=== PATIENT | male | born 1940 | race Caucasian/White ===

== ENCOUNTER 2025-04-01 13:29 | Emergency (ER) | payer MEDICARE ==
[2025-04-01] MEDS ORDERED: Sodium Chloride 0.9% 10 ML Syringe FLUSH PRN (14:13)
[2025-04-01] MEDS: Furosemide 40 MG/4 ML VIAL IVPUSH ONE (14:20)
[2025-04-01 15:14] LABS: APPEARANCE,URINE CLEAR (CLEAR); GLUCOSE,URINE NEGATIVE (NEGATIVE); OCCULT BLOOD,URINE NEGATIVE (NEGATIVE)
[2025-04-01] MEDS: Furosemide 20 MG/2 ML VIAL IVPUSH ONE (16:06)
[2025-04-01 17:40] VITALS: BP 130/92; PULSE 100
== END 2025-04-01 17:50 | disposition home or self-care (01) ==
LOC: LB.ED 13:29
DX: I48.91 Unspecified atrial fibrillation (principal); I50.9 Heart failure, unspecified; Z79.82 Long term (current) use of aspirin; Z79.899 Other long term (current) drug therapy
CPT/HCPCS: 36415; 81001; 83880; 84443; 84484; 93005; 93010; 96374; 96376; 99284; 99285-25; A9270-GY; J1938

== ENCOUNTER 2025-04-15 13:29 | Inpatient (IN) | payer MEDICARE ==
[2025-04-15] MEDS ORDERED: Sodium Chloride 0.9% 10 ML Syringe FLUSH PRN (14:00)
[2025-04-15] MEDS: Furosemide 40 MG/4 ML VIAL IVPUSH ONE (14:02)
[2025-04-15 14:13] LABS: BASOPHILS ABSOLUTE AUTO 0.02 K/uL (0.02-0.10); BASOPHILS PERCENT AUTO 0.2 % (0.0-0.5); EOSINOPHILS ABSOLUTE AUTO 0.03 K/uL (0.04-0.40); EOSINOPHILS PERCENT AUTO 0.4 % (1.0-5.0); LYMPHOCYTES ABSOLUTE AUTO 0.52 K/uL (1.50-4.00); LYMPHOCYTES PERCENT AUTO 6.3 % (20.0-40.0); MEAN PLATELET VOLUME 11.2 fL (6.0-10.0); MONOCYTES ABSOLUTE AUTO 0.62 K/uL (0.20-0.80); MONOCYTES PERCENT AUTO 7.5 % (3.0-10.0); NEUTROPHILS ABSOLUTE AUTO 7.03 K/uL (2.00-7.50); NEUTROPHILS PERCENT AUTO 85.6 % (45.0-70.0); PLATELET COUNT,PLT 249 K/uL (150-400); RED BLOOD CELL COUNT 4.29 M/uL (4.50-6.50); RED CELL DISTRIBUTION WIDTH 13.8 % (11.0-16.0); WHITE BLOOD CELL COUNT,WBC 8.2 K/uL (4.0-11.0)
[2025-04-15 14:33] LABS: TROPONIN I HIGH SENSITIVITY 13.3 pg/ml (<=60.4)
[2025-04-15 14:39] LABS: A/G RATIO 0.8 (0.8-2.0); ALANINE AMINOTRANSFERASE,ALT 32.0 U/L (12-78); ASPARTATE AMNIOTRANSFERASE,AST 18.0 U/L (15-37); BILIRUBIN TOTAL 0.7 mg/dL (0.0-1.0); BLOOD UREA NITROGEN,BUN 33.0 mg/dL (8-26); CARBON DIOXIDE,CO2 31.4 mmol/L (21.0-32.0); CHLORIDE,CL 104.0 mmol/L (98-107); CREATININE 1.87 mg/dL (0.70-1.30); EST CRCL DRUG DOSING (CG) 27.98 mL/min; ESTIMATED GFR 35.0 mL/min (>60); GLUCOSE RANDOM 186.0 mg/dL (74-100); POTASSIUM,K 3.6 mmol/L (3.5-5.1); PROTEIN TOTAL,TP 6.5 g/dL (6.4-8.2); SODIUM,NA 142.0 mmol/L (136-145)
[2025-04-15] MEDS: Metoprolol Tartrate 5 MG/5 ML SDV IVPUSH ONE (18:27)
[2025-04-15 20:55] LABS: BASOPHILS ABSOLUTE AUTO 0.02 K/uL (0.02-0.10); BASOPHILS PERCENT AUTO 0.2 % (0.0-0.5); EOSINOPHILS ABSOLUTE AUTO 0.14 K/uL (0.04-0.40); EOSINOPHILS PERCENT AUTO 1.7 % (1.0-5.0); LYMPHOCYTES ABSOLUTE AUTO 0.79 K/uL (1.50-4.00); LYMPHOCYTES PERCENT AUTO 9.8 % (20.0-40.0); MEAN PLATELET VOLUME 10.7 fL (6.0-10.0); MONOCYTES ABSOLUTE AUTO 0.89 K/uL (0.20-0.80); MONOCYTES PERCENT AUTO 11.0 % (3.0-10.0); NEUTROPHILS ABSOLUTE AUTO 6.23 K/uL (2.00-7.50); NEUTROPHILS PERCENT AUTO 77.3 % (45.0-70.0); PLATELET COUNT,PLT 220 K/uL (150-400); RED BLOOD CELL COUNT 4.23 M/uL (4.50-6.50); RED CELL DISTRIBUTION WIDTH 13.7 % (11.0-16.0); WHITE BLOOD CELL COUNT,WBC 8.1 K/uL (4.0-11.0)
[2025-04-15 21:29] LABS: INR 1.4 (1.0-3.5); PTT,PARTIAL THROMBOPLSTIN TIME 30.5 SECONDS (24.4-33.2)
[2025-04-16] MEDS: Furosemide 40 MG/4 ML VIAL IVPUSH SCH (07:18)
[2025-04-16] MEDS: Potassium Chloride 20 MEQ Tab.ER PO SCH (07:19)
[2025-04-16 07:20] VITALS: BP 122/81; PULSE 120
[2025-04-16] MEDS ORDERED: Furosemide 40 MG/4 ML VIAL IVPUSH SCH (08:00)
[2025-04-16 10:07] LABS: BASOPHILS ABSOLUTE AUTO 0.02 K/uL (0.02-0.10); BASOPHILS PERCENT AUTO 0.3 % (0.0-0.5); EOSINOPHILS ABSOLUTE AUTO 0.16 K/uL (0.04-0.40); EOSINOPHILS PERCENT AUTO 2.1 % (1.0-5.0); LYMPHOCYTES ABSOLUTE AUTO 0.68 K/uL (1.50-4.00); LYMPHOCYTES PERCENT AUTO 8.9 % (20.0-40.0); MEAN PLATELET VOLUME 10.2 fL (6.0-10.0); MONOCYTES ABSOLUTE AUTO 0.72 K/uL (0.20-0.80); MONOCYTES PERCENT AUTO 9.4 % (3.0-10.0); NEUTROPHILS ABSOLUTE AUTO 6.07 K/uL (2.00-7.50); NEUTROPHILS PERCENT AUTO 79.3 % (45.0-70.0); PLATELET COUNT,PLT 220 K/uL (150-400); RED BLOOD CELL COUNT 4.49 M/uL (4.50-6.50); RED CELL DISTRIBUTION WIDTH 13.7 % (11.0-16.0); WHITE BLOOD CELL COUNT,WBC 7.7 K/uL (4.0-11.0)
[2025-04-16 10:16] LABS: BLOOD UREA NITROGEN,BUN 28.0 mg/dL (8-26); CARBON DIOXIDE,CO2 35.1 mmol/L (21.0-32.0); CHLORIDE,CL 100.0 mmol/L (98-107); CREATININE 1.64 mg/dL (0.70-1.30); EST CRCL DRUG DOSING (CG) 33.02 mL/min; ESTIMATED GFR 41.0 mL/min (>60); GLUCOSE RANDOM 187.0 mg/dL (74-100); POTASSIUM,K 3.0 mmol/L (3.5-5.1); SODIUM,NA 141.0 mmol/L (136-145)
== END 2025-04-16 12:00 | DRG 293 ==
LOC: LB.ED 13:29 → LB.MS 16:30 → UNDOADMIN 17:12 → UNDODISIN 04-16 12:00
PROVIDERS: ADMIT Emergency Medicine; ATTEND Emergency Medicine
DX: J90 Pleural effusion, not elsewhere classified (principal); I11.0 Hypertensive heart disease with heart failure; I50.9 Heart failure, unspecified; I48.91 Unspecified atrial fibrillation; H91.90 Unspecified hearing loss, unspecified ear; H54.7 Unspecified visual loss; E78.00 Pure hypercholesterolemia, unspecified; R21 Rash and other nonspecific skin eruption; Z85.820 Personal history of malignant melanoma of skin; Z85.46 Personal history of malignant neoplasm of prostate; Z90.49 Acquired absence of other specified parts of digestive tract; Z79.899 Other long term (current) drug therapy; Z79.01 Long term (current) use of anticoagulants; Z79.82 Long term (current) use of aspirin; I25.2 Old myocardial infarction; Z95.5 Presence of coronary angioplasty implant and graft; Z90.89 Acquired absence of other organs; Z90.79 Acquired absence of other genital organ(s); Z98.890 Other specified postprocedural states
CPT/HCPCS: 36415; 71046; 80048; 80053; 83735; 83880; 84484; 85025; 85610; 85730; 93005; 93010; 96374; 96375; 96376; 99223; 99238; 99285-25; A9270-GY; J0616; J1160; J1644; J1938